=== PATIENT | female | born 1970 | race Caucasian/White ===

== ENCOUNTER → 2024-07-25 | Day surgery (SDC) | payer MEDICAID ==
[~2024-07-25] VITALS: Ht 162.6 cm; Wt 86.2 kg
[~2024-07-25] MED LIST: BALANCED SALT IRRIG SOLN 15ML ONE; BALANCED SALT IRRIG SOLN COMB1 500ML OP NR; BRIM15DR8 EACHEYE; BUPR-102 PO; CYCLOPENTOLATE HCL 1% OPHTH DROPS 2ML LEFTEYE NR; DORZ10DR8 EACHEYE; DULA1.5P SQ; GLYC30DR4 EACHEYE; HYALURONATE SODIUM 10MG/ML 0.55ML SYRINGE IO ONE; INSASP SUBCUT; INSU300I SQ; LATA2.5D14 EACHEYE; LORA-249 PO; LORA10TA7 PO; METH50TA5 PO; MIDAZOLAM HCL 2 MG/2 ML VIAL ONE; PHENYLEPHRINE HCL 10% OPHTH DROPS 5ML LEFTEYE NR; SERT100T PO; SODIUM CHLORIDE 0.9% 1,000 ML IV SCH; TROPICAMIDE 1% OPHTH DROPS 15ML LEFTEYE NR; TRYPAN BLUE 0.5 ML DISP.SYRIN IO ONE
== END | disposition home or self-care (01) ==
LOC: OR 07:03
PROVIDERS: ATTEND Ophthalmology
DX: E11.36 Type 2 diabetes mellitus with diabetic cataract (principal); H25.89 Other age-related cataract; I25.10 Atherosclerotic heart disease of native coronary artery without angina pectoris; F41.9 Anxiety disorder, unspecified; F32.9 Major depressive disorder, single episode, unspecified; Z79.84 Long term (current) use of oral hypoglycemic drugs; Z79.899 Other long term (current) drug therapy; Z98.890 Other specified postprocedural states
CPT/HCPCS: 66984; 82962; J2003; J2250; J3490; Q9957; V2632